=== PATIENT | male | born 1990 | race Caucasian/White ===

== ENCOUNTER 2021-12-02 16:45 | Outpatient (RCR) | payer OTHER, SELFPAY ==
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
== END 2022-01-05 23:59 | disposition home or self-care (01) ==
LOC: CHSPT 16:45
PROVIDERS: PCP Family Medicine; Visit Provider Family Medicine
DX: M54.9 Dorsalgia, unspecified (principal)
CPT/HCPCS: 97014; 97110; 97140; 97161; G0283